=== PATIENT | female | born 1995 | race Caucasian/White ===

== ENCOUNTER 2017-04-12 18:47 | Emergency (ER) | payer OTHER, MEDICAID ==
[~2017-04-12] VITALS: Ht 160 cm; Wt 54.5 kg
[2017-04-12 19:45] VITALS: BP 102/61; PULSE 67; RESP 16; TEMP 97.8; O2SAT 98
[2017-04-12] MEDS ORDERED: MULTTAB67 PO (19:45)
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
[2017-04-12 20:21] VITALS: BP 108/69; PULSE 64; RESP 18; TEMP 98.2; O2SAT 98
[2017-04-12 20:30] LABS: AUTOMATED NEUTROPHIL # 4.4 TH/MM3 (1.8-7.7); BASOPHIL % 0.5 % (0.0-2.0); EOSINOPHIL # 0.1 TH/MM3 (0-0.4); EOSINOPHIL % 1.8 % (0.0-4.0); HEMATOCRIT 42.8 % (35.0-46.0); HEMO FLAGS DIFF FINAL; LYMPH % 33.1 % (9.0-44.0); LYMPHOCYTE # 2.5 TH/MM3 (1.0-4.8); MEAN CELL VOLUME 89.6 FL (80.0-100.0); MEAN CORPUSCULAR HEMOGLOBIN 30.5 PG (27.0-34.0); MONO % 7.1 % (0.0-8.0); NEUT % 57.5 % (16.0-70.0); PLATELET COUNT 216 TH/MM3 (150-450); RED BLOOD COUNT 4.77 MIL/MM3 (4.00-5.30); WHITE BLOOD COUNT 7.6 TH/MM3 (4.0-11.0)
[2017-04-12 20:35] LABS: AMPHETAMINE, URINE NEG (NEG); BARBITURATES, URINE NEG (NEG); COCAINE, URINE NEG (NEG)
[2017-04-12 20:47] LABS: ANION GAP 5 MEQ/L (5-15); AST (GOT) 16 U/L (16-38); BICARBONATE 27.6 MEQ/L (21.0-32.0); BLOOD UREA NITROGEN 11 MG/DL (7-18); CHLORIDE 107 MEQ/L (98-107); GLOMERULAR FILTRATION RATE 97 ML/MIN (>89); POTASSIUM 3.7 MEQ/L (3.5-5.1); SODIUM (NA) 140 MEQ/L (136-145)
[2017-04-12 20:50] LABS: ACETAMINOPHEN LESS THAN 2.0 MCG/ML (10.0-30.0); ALKALINE PHOSPHATASE 45 U/L (45-117); ALT (GPT) 26 U/L (9-42); TOTAL BILIRUBIN ADULT 0.5 MG/DL (0.2-1.0)
[2017-04-13 02:27] VITALS: BP 103/59; PULSE 61; RESP 16; O2SAT 99
[2017-04-13 06:22] VITALS: BP 90/50; PULSE 63; RESP 16; O2SAT 99
[2017-04-13 10:00] VITALS: BP 103/59; PULSE 63; RESP 18
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
== END 2017-04-13 13:08 | disposition home or self-care (01) ==
LOC: NEPJ 18:47
DX: Z02.89 Encounter for other administrative examinations (principal); F32.9 Major depressive disorder, single episode, unspecified; F43.21 Adjustment disorder with depressed mood
CPT/HCPCS: 80053; 80307; 84703; 85025; 99284